=== PATIENT | male | born 1955 | race African-American/Black ===

== ENCOUNTER 2021-05-15 16:16 | Emergency (ER) | payer MEDICARE ==
[2021-05-15 17:31] LABS: #Eosinphils 0.1 thou/uL (0.0-0.7); #Lymphocytes 1.8 thou/uL (1.20-3.40); #Monocytes 0.6 thou/uL (0.11-0.59); #Neutrophils 5.8 thou/uL (1.40-6.50); %Basophils 0.4 % (0.0-1.0); %Eosinophils 0.8 % (0.0-10.0); %Lymphocytes 21.4 % (21.0-51.0); %Monocytes 7.2 % (0.0-10.0); %Neutrophils 70.2 % (42.0-75.0); Hemoglobin 15.3 g/dL (14.0-18.0); Mean Corpuscular HGB CONC 33.2 g/dL (32.0-36.0); Mean Corpuscular Hemoglobin 33.4 pg (27.0-31.0); Mean Platelet Volume 8.2 fL (7.4-10.4); Platelet Count 209 thou/uL (130-400); RBC Distribution Width 11.2 % (11.5-14.5); White Blood Cell (WBC) Count 8.3 thou/uL (4.8-10.8)
[2021-05-15 18:06] LABS: ALT (SGPT) Less than 7 U/L (8-55); AST (SGOT) 19 U/L (5-34); Albumin 3.8 g/dL (3.4-4.8); Alkaline Phosphatase 55 U/L (40-110); Anion Gap 15 mmol/L (10-20); BUN (Urea Nitrogen) 16 mg/dL (8.4-25.7); Bilirubin, Total 1.3 mg/dL (0.2-1.2); Calc. Creatinine Clearance 0 mL/min (70-130); Calcium 9.3 mg/dL (7.8-10.44); Carbon Dioxide 21 mmol/L (23-31); Chloride 108 mmol/L (98-107); Globulin 3.3 g/dL (2.4-3.5); Glucose 101 mg/dL (80-115); Lipase 6 U/L (8-78); Potassium 4.1 mmol/L (3.5-5.1); Protein, Total 7.1 g/dL (5.8-8.1); Sodium 140 mmol/L (136-145)
[2021-05-15 20:11] LABS: Bacteria/HPF None Seen HPF (None Seen); Bilirubin Negative (Negative); Blood, Urine Negative (Negative); Clarity Clear (Clear); Glucose, Urine (Dipstick) Normal (Negative); Ketone, Urine 10 mg/dL (Negative); Leukocyte Negative Leu/uL (Negative); Nitrite Negative (Negative); Protein, Urine (Dipstick) 30 mg/dL (Neg-Trace); RBC/HPF None Seen HPF (0-3); Specific Gravity, Urine 1.032 (1.002-1.036); Squamous Epithelial 0-3 HPF (0-3); Urobilinogen 3 mg/dL (Less than 2); WBC/HPF 0-3 HPF (0-3); pH, Urine 6.5 (5.0-9.0)
[2021-05-15 20:21] LABS: Sperm/HPF Rare HPF (None Seen)
== END 2021-05-15 21:25 | disposition home or self-care (01) ==
LOC: ERS 16:16
DX: R53.1 Weakness (principal); R79.89 Other specified abnormal findings of blood chemistry; G20 Parkinson's disease; F02.80 Dementia in other diseases classified elsewhere, unspecified severity, without behavioral disturbance, psychotic disturbance, mood disturbance, and anxiety; Z79.899 Other long term (current) drug therapy
CPT/HCPCS: 36415; 71045; 80053; 81003; 81015; 83690; 84484; 85025; 93005

== ENCOUNTER 2022-01-18 13:18 | Inpatient (IN) | payer MEDICARE, SELFPAY ==
[2022-01-18] MEDS ORDERED: Iopamidol-370 76% 500 ML 1 ML ONE (13:27)
[2022-01-18 14:00] LABS: #Lymphocytes 0.4 thou/uL (1.20-3.40); #Monocytes 0.5 thou/uL (0.11-0.59); #Neutrophils 3.3 thou/uL (1.40-6.50); %Basophils 0.1 % (0.0-1.0); %Eosinophils 0.1 % (0.0-10.0); %Lymphocytes 10.5 % (21.0-51.0); %Monocytes 12.1 % (0.0-10.0); %Neutrophils 77.1 % (42.0-75.0); Hemoglobin 16.3 g/dL (14.0-18.0); Mean Corpuscular HGB CONC 32.6 g/dL (32.0-36.0); Mean Corpuscular Hemoglobin 33.7 pg (27.0-31.0); Mean Platelet Volume 7.8 fL (7.4-10.4); Platelet Count 153 thou/uL (130-400); RBC Distribution Width 11.5 % (11.5-14.5); Red Blood Cell (RBC) Count 4.85 mill/uL (4.70-6.10); White Blood Cell (WBC) Count 4.2 thou/uL (4.8-10.8)
[2022-01-18 14:15] LABS: Bacteria/HPF None Seen HPF (None Seen); Bilirubin Negative (Negative); Blood, Urine 2+ (Negative); Clarity Clear (Clear); Glucose, Urine (Dipstick) Normal (Negative); Ketone, Urine 40 mg/dL (Negative); Leukocyte Negative Leu/uL (Negative); Nitrite Negative (Negative); Protein, Urine (Dipstick) 30 mg/dL (Neg-Trace); RBC/HPF 0-3 HPF (0-3); Specific Gravity, Urine 1.031 (1.002-1.036); Squamous Epithelial 0-3 HPF (0-3); Urobilinogen Normal mg/dL (Less than 2); WBC/HPF 0-3 HPF (0-3)
[2022-01-18 14:22] LABS: ALT (SGPT) 19 U/L (8-55); AST (SGOT) 32 U/L (5-34); Albumin 4.2 g/dL (3.4-4.8); Alkaline Phosphatase 44 U/L (40-110); Anion Gap 14 mmol/L (10-20); BUN (Urea Nitrogen) 19 mg/dL (8.4-25.7); Bilirubin, Total 2.3 mg/dL (0.2-1.2); CK (CPK) 1208 U/L (30-200); Calc. Creatinine Clearance 0 mL/min (70-130); Calcium 9.8 mg/dL (7.8-10.44); Carbon Dioxide 24 mmol/L (23-31); Chloride 106 mmol/L (98-107); Globulin 3.6 g/dL (2.4-3.5); Glucose 101 mg/dL (80-115); Protein, Total 7.8 g/dL (5.8-8.1); Sodium 140 mmol/L (136-145)
[2022-01-18] MEDS ORDERED: hydrALAZINE 20 MG/ML VIAL SLOW IVP PRN (22:05)
[2022-01-19 05:40] VITALS: BMI 20.2
[2022-01-19] MEDS ORDERED: Aspirin Chewable 81 MG TAB ONE (09:37)
[2022-01-19] MEDS ORDERED: Clopidogrel Bisulfate 75 MG TAB ONE (09:37)
[2022-01-19] MEDS ORDERED: Enoxaparin Sodium 40 MG/0.4 ML SYRINGE ONE (09:37)
[2022-01-19] MEDS: Enoxaparin Sodium 40 MG/0.4 ML SYRINGE SC SCH (09:38)
[2022-01-19] MEDS: Clopidogrel Bisulfate 75 MG TAB PO SCH (09:38)
[2022-01-19] MEDS: Aspirin 81 mg Enteric Coated Tablet PO SCH (09:38)
[2022-01-19] MEDS ORDERED: Acetaminophen 325 MG TAB PO PRN (10:30)
[2022-01-19 10:37] LABS: #Lymphocytes 1.8 thou/uL (1.20-3.40); #Monocytes 0.6 thou/uL (0.11-0.59); #Neutrophils 2.6 thou/uL (1.40-6.50); %Basophils 0.6 % (0.0-1.0); %Eosinophils 0.1 % (0.0-10.0); %Lymphocytes 35.8 % (21.0-51.0); %Monocytes 11.1 % (0.0-10.0); %Neutrophils 52.4 % (42.0-75.0); Hemoglobin 16.2 g/dL (14.0-18.0); Mean Corpuscular Hemoglobin 33.5 pg (27.0-31.0); Mean Platelet Volume 7.9 fL (7.4-10.4); Platelet Count 137 thou/uL (130-400); RBC Distribution Width 11.6 % (11.5-14.5); Red Blood Cell (RBC) Count 4.84 mill/uL (4.70-6.10); White Blood Cell (WBC) Count 4.9 thou/uL (4.8-10.8)
[2022-01-19 11:15] LABS: Anion Gap 16 mmol/L (10-20); BUN (Urea Nitrogen) 16 mg/dL (8.4-25.7); Calc. Creatinine Clearance 65 mL/min (70-130); Calcium 8.9 mg/dL (7.8-10.44); Carbon Dioxide 21 mmol/L (23-31); Chloride 105 mmol/L (98-107); Cholesterol 183 mg/dl (< 200 Desired); Glucose 88 mg/dL (80-115); HDL Cholesterol 61 mg/dL (>60 Neg Risk); LDL Cholesterol, Calculated 107 mg/dL; Potassium 3.9 mmol/L (3.5-5.1); Sodium 138 mmol/L (136-145); Triglycerides 73 mg/dL (Less than 150)
[2022-01-19] MEDS: Sodium Chloride 0.9% 1,000 ML IV SCH ×2 (11:46→20:36)
[2022-01-19] MEDS: Carbidopa/Levodopa 25-100 mg Tablet PO SCH (20:37)
[2022-01-19] MEDS: Atorvastatin Calcium 40 MG TAB PO SCH (20:37)
[2022-01-20] MEDS: Carbidopa/Levodopa 25-100 mg Tablet PO SCH ×4 (09:32→21:04)
[2022-01-20] MEDS: Aspirin 81 mg Enteric Coated Tablet PO SCH (09:32)
[2022-01-20] MEDS: Enoxaparin Sodium 40 MG/0.4 ML SYRINGE SC SCH (09:34)
[2022-01-20] MEDS: Clopidogrel Bisulfate 75 MG TAB PO SCH (09:34)
[2022-01-20] MEDS: Atorvastatin Calcium 40 MG TAB PO SCH (21:04)
[2022-01-21 05:41] LABS: Anion Gap 14 mmol/L (10-20); BUN (Urea Nitrogen) 11 mg/dL (8.4-25.7); CK (CPK) 1393 U/L (30-200); Calc. Creatinine Clearance 73 mL/min (70-130); Calcium 8.5 mg/dL (7.8-10.44); Carbon Dioxide 23 mmol/L (23-31); Chloride 105 mmol/L (98-107); Glucose 89 mg/dL (80-115); Potassium 3.3 mmol/L (3.5-5.1); Sodium 139 mmol/L (136-145)
[2022-01-21] MEDS: Carbidopa/Levodopa 25-100 mg Tablet PO SCH ×4 (09:13→20:22)
[2022-01-21] MEDS: Clopidogrel Bisulfate 75 MG TAB PO SCH (09:13)
[2022-01-21] MEDS: Aspirin 81 mg Enteric Coated Tablet PO SCH (09:13)
[2022-01-21] MEDS: Enoxaparin Sodium 40 MG/0.4 ML SYRINGE SC SCH (09:13)
[2022-01-21] MEDS ORDERED: Potassium Chloride 20 MEQ TAB PO SCH (14:15)
[2022-01-21] MEDS: Sodium Chloride 0.9% 1,000 ML IV SCH (20:22)
[2022-01-21] MEDS: Atorvastatin Calcium 40 MG TAB PO SCH (20:22)
[2022-01-22 06:00] LABS: Anion Gap 14 mmol/L (10-20); BUN (Urea Nitrogen) 10 mg/dL (8.4-25.7); CK (CPK) 1136 U/L (30-200); Calc. Creatinine Clearance 73 mL/min (70-130); Calcium 8.8 mg/dL (7.8-10.44); Carbon Dioxide 25 mmol/L (23-31); Chloride 106 mmol/L (98-107); Estimated GFR 96; Glucose 79 mg/dL (80-115); Magnesium 1.8 mg/dL (1.6-2.6); Potassium 3.7 mmol/L (3.5-5.1); Sodium 141 mmol/L (136-145)
[2022-01-22 06:24] LABS: Band 8 % (5-11); Hemoglobin 16.9 g/dL (14.0-18.0); Lymphocytes 46 % (21-51); MDiff Complete? YES; Macrocytosis SLIGHT = 6-15 cells (100X) (0-5/hpf); Mean Corpuscular HGB CONC 32.2 g/dL (32.0-36.0); Mean Corpuscular Hemoglobin 33.3 pg (27.0-31.0); Mean Platelet Volume 8.2 fL (7.4-10.4); Monocytes 12 % (0-10); Neutrophil 30 % (42-75); Platelet Count 132 thou/uL (130-400); Platelet Morphology Comment Appears Adequate; RBC Distribution Width 11.5 % (11.5-14.5); Reactive Lymphocytes 4 % (0-10); Red Blood Cell (RBC) Count 5.08 mill/uL (4.70-6.10); White Blood Cell (WBC) Count 3.4 thou/uL (4.8-10.8)
[2022-01-22] MEDS: Sodium Chloride 0.9% 1,000 ML IV SCH ×2 (09:15→23:17)
[2022-01-22] MEDS: Carbidopa/Levodopa 25-100 mg Tablet PO SCH ×4 (09:22→19:15)
[2022-01-22] MEDS: Clopidogrel Bisulfate 75 MG TAB PO SCH (09:22)
[2022-01-22] MEDS: Enoxaparin Sodium 40 MG/0.4 ML SYRINGE SC SCH (09:22)
[2022-01-22] MEDS: Aspirin 81 mg Enteric Coated Tablet PO SCH (09:22)
[2022-01-22] MEDS: Atorvastatin Calcium 40 MG TAB PO SCH (21:21)
[2022-01-23] MEDS: Carbidopa/Levodopa 25-100 mg Tablet PO SCH ×4 (06:18→18:30)
[2022-01-23] MEDS: Enoxaparin Sodium 40 MG/0.4 ML SYRINGE SC SCH (10:01)
[2022-01-23] MEDS: Clopidogrel Bisulfate 75 MG TAB PO SCH (10:01)
[2022-01-23] MEDS: Aspirin 81 mg Enteric Coated Tablet PO SCH (10:02)
[2022-01-23] MEDS: Sodium Chloride 0.9% 1,000 ML IV SCH (10:02)
[2022-01-23] MEDS: Atorvastatin Calcium 40 MG TAB PO SCH (19:34)
[2022-01-24] MEDS: Sodium Chloride 0.9% 1,000 ML IV SCH ×2 (01:35→11:44)
[2022-01-24] MEDS: Carbidopa/Levodopa 25-100 mg Tablet PO SCH ×3 (06:08→14:51)
[2022-01-24] MEDS: Aspirin 81 mg Enteric Coated Tablet PO SCH (11:08)
[2022-01-24] MEDS: Enoxaparin Sodium 40 MG/0.4 ML SYRINGE SC SCH (11:08)
[2022-01-24] MEDS: Clopidogrel Bisulfate 75 MG TAB PO SCH (11:09)
[2022-01-24 11:58] VITALS: BP 157/74; TEMP 98
== END 2022-01-24 16:05 | DRG 69 ==
LOC: ERS 13:18 → ERHOLD 16:50 → NEURO 01-19 10:02
PROVIDERS: ADMIT Family Medicine; ATTEND Internal Medicine
PROC: 8E0ZXY6 Isolation (ICD-10-PCS; principal; 2022-01-19)
DX: G45.9 Transient cerebral ischemic attack, unspecified (principal); U07.1 COVID-19; G20 Parkinson's disease; F02.80 Dementia in other diseases classified elsewhere, unspecified severity, without behavioral disturbance, psychotic disturbance, mood disturbance, and anxiety; T79.6XXA Traumatic ischemia of muscle, initial encounter; W19.XXXA Unspecified fall, initial encounter; N18.2 Chronic kidney disease, stage 2 (mild); Z91.81 History of falling; Z86.73 Personal history of transient ischemic attack (TIA), and cerebral infarction without residual deficits; Z88.0 Allergy status to penicillin; Y92.009 Unspecified place in unspecified non-institutional (private) residence as the place of occurrence of the external cause
CPT/HCPCS: 36415; 36416; 70450; 70496; 70498; 70551; 74230; 80048; 80053; 80061; 81003; 81015; 82550; 83735; 85025; 93005; 93306; J1650; J7050; Q9967; U0003; U0005

== ENCOUNTER 2023-02-17 11:35 | Inpatient (IN) | payer MEDICARE, OTHER, SELFPAY ==
[~2023-02-17 11:35] MED LIST: Iopamidol-370 76% 500 ML MDV (1 ML CHARGE) ONE
[2023-02-17 13:20] LABS: #Monocytes 0.4 thou/uL (0.11-0.59); #Neutrophils 5.4 thou/uL (1.40-6.50); %Basophils 0.3 % (0.0-1.0); %Lymphocytes 12.7 % (21.0-51.0); %Monocytes 6.4 % (0.0-10.0); %Neutrophils 80.5 % (42.0-75.0); Hemoglobin 14.7 g/dL (14.0-18.0); Mean Corpuscular HGB CONC 34.3 g/dL (32.0-36.0); Mean Corpuscular Hemoglobin 32.9 pg (27.0-31.0); Mean Corpuscular Volume 95.7 fl (78.0-98.0); Mean Platelet Volume 10.9 fL (7.4-10.4); Platelet Count 150 10x3/uL (130-400); RBC Distribution Width 11.6 % (11.5-14.5); Red Blood Cell (RBC) Count 4.47 mill/uL (4.70-6.10); White Blood Cell (WBC) Count 6.7 10x3/uL (4.8-10.8)
[2023-02-17 13:45] LABS: ALT (SGPT) 12 U/L (8-55); AST (SGOT) 30 U/L (5-34); Albumin 3.5 g/dL (3.4-4.8); Alkaline Phosphatase 40 U/L (40-110); Anion Gap 16 mmol/L (10-20); BUN (Urea Nitrogen) 19 mg/dL (8.4-25.7); Bilirubin, Total 2.4 mg/dL (0.2-1.2); Calc. Creatinine Clearance 0 mL/min (70-130); Calcium 8.8 mg/dL (7.8-10.44); Carbon Dioxide 18 mmol/L (23-31); Chloride 114 mmol/L (98-107); Estimated GFR 77; Globulin 2.9 g/dL (2.4-3.5); Glucose 113 mg/dL (80-115); Lipase Less than 4 U/L (8-78); Magnesium 1.8 mg/dL (1.6-2.6); Potassium 3.5 mmol/L (3.5-5.1); Protein, Total 6.4 g/dL (5.8-8.1); Sodium 144 mmol/L (136-145)
[2023-02-17 13:55] LABS: Bacteria/HPF None Seen HPF (None Seen); Bilirubin Negative (Negative); Blood, Urine 1+ (Negative); CAUTI Indications for Culture Alt mental st,lethar; Clarity Clear (Clear); Glucose, Urine (Dipstick) Normal (Negative); Ketone, Urine 60 mg/dL (Negative); Leukocyte Negative Leu/uL (Negative); Mucous/LPF Rare LPF (<2+); Nitrite Negative (Negative); Protein, Urine (Dipstick) 30 mg/dL (Neg-Trace); Specific Gravity, Urine 1.029 (1.002-1.036); Squamous Epithelial 0-3 HPF (0-3); Urobilinogen Normal mg/dL (Less than 2); WBC/HPF None Seen HPF (0-3); pH, Urine 5.5 (5.0-9.0)
[2023-02-17 13:56] LABS: Sperm/HPF Rare HPF (None Seen)
[2023-02-17 13:57] LABS: Urine Culture Reflex No No
[2023-02-17] MEDS ORDERED: Sodium Chloride 0.9% 1,000 ML IV SCH (15:45)
[2023-02-17 16:14] LABS: Acetaminophen Less than 10 mcg/mL (10.0-30.0); Alcohol Less than 10.0 mg/dL (Less than 10); Salicylate Less than 8.0 mg/dL (15.0-30.0)
[2023-02-17 16:15] LABS: Amphetamine Not Detected (NotDetected); Barbiturates Screen Not Detected (NotDetected); Benzodiazepine Screen Not Detected (NotDetected); Cocaine Metabolite Screen Not Detected (NotDetected); Methadone Not Detected (NotDetected); Methamphetamine Not Detected (NotDetected); Opiate Screen Not Detected (NotDetected); Oxycodone Screen Not Detected (NotDetected); Phencyclidine (PCP) Not Detected (NotDetected); THC/Cannabinoid Screen Not Detected (NotDetected); Tricyclic Screen Not Detected (NotDetected)
[2023-02-17] MEDS ORDERED: Ondansetron PF 4 MG/2 ML Vial IVP PRN (16:29)
[2023-02-17 18:35] VITALS: BMI 3003.8
[2023-02-18 05:56] LABS: ALT (SGPT) 22 U/L (8-55); AST (SGOT) 64 U/L (5-34); Albumin 3.4 g/dL (3.4-4.8); Alkaline Phosphatase 37 U/L (40-110); Anion Gap 13 mmol/L (10-20); BUN (Urea Nitrogen) 13 mg/dL (8.4-25.7); Bilirubin, Total 2.1 mg/dL (0.2-1.2); Calc. Creatinine Clearance 65 mL/min (70-130); Calcium 8.6 mg/dL (7.8-10.44); Carbon Dioxide 20 mmol/L (23-31); Chloride 111 mmol/L (98-107); Estimated GFR 95; Globulin 3.3 g/dL (2.4-3.5); Glucose 87 mg/dL (80-115); Potassium 4.9 mmol/L (3.5-5.1); Protein, Total 6.7 g/dL (5.8-8.1); Sodium 139 mmol/L (136-145)
[2023-02-18 06:04] LABS: CKMB 32.4 ng/mL (0-6.6)
[2023-02-18] MEDS: Carbidopa/Levodopa 25-100 mg Tablet PO SCH ×3 (10:07→20:18)
[2023-02-18] MEDS ORDERED: HYDROcodone/Acetaminophen 5/325 mg Tablet PO PRN (16:31)
[2023-02-18] MEDS: Atorvastatin Calcium 40 MG TAB PO SCH (20:18)
[2023-02-18] MEDS: Acetaminophen 325 MG TAB PO PRN (20:19)
[2023-02-19 09:19] LABS: ALT (SGPT) 13 U/L (8-55); AST (SGOT) 52 U/L (5-34); Albumin 3.3 g/dL (3.4-4.8); Alkaline Phosphatase 39 U/L (40-110); Anion Gap 11 mmol/L (10-20); BUN (Urea Nitrogen) 15 mg/dL (8.4-25.7); Bilirubin, Total 1.7 mg/dL (0.2-1.2); Calc. Creatinine Clearance 63 mL/min (70-130); Carbon Dioxide 19 mmol/L (23-31); Chloride 113 mmol/L (98-107); Estimated GFR 91; Glucose 91 mg/dL (80-115); Potassium 3.4 mmol/L (3.5-5.1); Protein, Total 6.3 g/dL (5.8-8.1); Sodium 140 mmol/L (136-145)
[2023-02-19 09:49] LABS: Troponin I 0.026 ng/mL (< 0.028)
[2023-02-19] MEDS: Clopidogrel Bisulfate 75 MG TAB PO SCH (10:25)
[2023-02-19] MEDS: Carbidopa/Levodopa 25-100 mg Tablet PO SCH ×3 (10:25→20:46)
[2023-02-19] MEDS: Sodium Chloride 0.9% 1,000 ML IV SCH (17:33)
[2023-02-19] MEDS: Atorvastatin Calcium 40 MG TAB PO SCH (20:46)
[2023-02-20] MEDS: Sodium Chloride 0.9% 1,000 ML IV SCH ×2 (05:22→17:05)
[2023-02-20] MEDS: Clopidogrel Bisulfate 75 MG TAB PO SCH (08:49)
[2023-02-20] MEDS: Carbidopa/Levodopa 25-100 mg Tablet PO SCH ×4 (08:49→20:57)
[2023-02-20] MEDS: Acetaminophen 325 MG TAB PO PRN ×2 (09:12→20:57)
[2023-02-20] MEDS: Atorvastatin Calcium 40 MG TAB PO SCH (20:56)
[2023-02-21 05:41] LABS: Hemoglobin 14.9 g/dL (14.0-18.0); Platelet Count 171 10x3/uL (130-400)
[2023-02-21] MEDS: Carbidopa/Levodopa 25-100 mg Tablet PO SCH ×2 (09:41→14:37)
[2023-02-21] MEDS: Clopidogrel Bisulfate 75 MG TAB PO SCH (09:41)
[2023-02-21] MEDS: Sodium Chloride 0.9% 1,000 ML IV SCH ×2 (09:42→14:38)
[2023-02-21 11:17] LABS: #Basophils 0.1 thou/uL (0.0-0.2); #Eosinphils 0.1 thou/uL (0.0-0.7); #Monocytes 0.5 thou/uL (0.11-0.59); #Neutrophils 2.5 thou/uL (1.40-6.50); %Basophils 1.2 % (0.0-1.0); %Eosinophils 1.8 % (0.0-10.0); %Lymphocytes 37.3 % (21.0-51.0); %Monocytes 9.4 % (0.0-10.0); %Neutrophils 50.1 % (42.0-75.0); Hemoglobin 14.1 g/dL (14.0-18.0); Mean Corpuscular HGB CONC 32.3 g/dL (32.0-36.0); Mean Corpuscular Hemoglobin 32.6 pg (27.0-31.0); Mean Corpuscular Volume 101.2 fl (78.0-98.0); Mean Platelet Volume 10.6 fL (7.4-10.4); Platelet Count 140 10x3/uL (130-400); RBC Distribution Width 11.7 % (11.5-14.5); Red Blood Cell (RBC) Count 4.32 mill/uL (4.70-6.10)
[2023-02-21 11:49] LABS: Anion Gap 15 mmol/L (10-20); Calcium 8.4 mg/dL (7.8-10.44); Carbon Dioxide 21 mmol/L (23-31); Chloride 108 mmol/L (98-107); Potassium 3.5 mmol/L (3.5-5.1); Sodium 140 mmol/L (136-145)
[2023-02-21 12:51] LABS: Glucose 116 mg/dL (80-115)
[2023-02-21 13:11] LABS: BUN (Urea Nitrogen) 12 mg/dL (8.4-25.7); Calc. Creatinine Clearance 68 mL/min (70-130); Estimated GFR 96
[2023-02-21 16:25] VITALS: BP 144/87; TEMP 97.6
== END 2023-02-21 17:40 | DRG 565 ==
LOC: ERS 11:35 → ERHOLD 15:34 → 2NO 18:10 → SURG B 02-18 18:12
PROVIDERS: ADMIT Internal Medicine; ATTEND Internal Medicine
DX: T79.6XXA Traumatic ischemia of muscle, initial encounter (principal); S22.070A Wedge compression fracture of T9-T10 vertebra, initial encounter for closed fracture; R53.1 Weakness; G20 Parkinson's disease; Z66 Do not resuscitate; R29.6 Repeated falls; E86.0 Dehydration; Z60.2 Problems related to living alone; F02.80 Dementia in other diseases classified elsewhere, unspecified severity, without behavioral disturbance, psychotic disturbance, mood disturbance, and anxiety; E66.9 Obesity, unspecified; W18.30XA Fall on same level, unspecified, initial encounter; Z79.899 Other long term (current) drug therapy; Z88.0 Allergy status to penicillin; Z86.73 Personal history of transient ischemic attack (TIA), and cerebral infarction without residual deficits; Z79.82 Long term (current) use of aspirin; Z79.02 Long term (current) use of antithrombotics/antiplatelets; Z82.49 Family history of ischemic heart disease and other diseases of the circulatory system; Y92.009 Unspecified place in unspecified non-institutional (private) residence as the place of occurrence of the external cause
CPT/HCPCS: 36415; 36416; 70450; 71260; 72125; 74177; 80053; 80306; 80307; 81001; 82550; 82553; 82565; 83605; 83690; 83735; 83880; 84484; 85014; 85018; 85025; 85049; 87040; 87086; 93005; 96360; J1650; J7050; Q9967

== ENCOUNTER 2023-03-17 11:16 | Inpatient (IN) | payer MEDICARE, OTHER ==
[2023-03-17 12:30] LABS: #Monocytes 0.8 thou/uL (0.11-0.59); #Neutrophils 12.7 thou/uL (1.40-6.50); %Basophils 0.2 % (0.0-1.0); %Lymphocytes 8.6 % (21.0-51.0); %Monocytes 5.1 % (0.0-10.0); %Neutrophils 85.7 % (42.0-75.0); Hematocrit 48.7 % (42.0-52.0); Hemoglobin 16.7 g/dL (14.0-18.0); Mean Corpuscular HGB CONC 34.3 g/dL (32.0-36.0); Mean Corpuscular Volume 96.2 fl (78.0-98.0); Mean Platelet Volume 10.8 fL (7.4-10.4); Platelet Count 251 10x3/uL (130-400); RBC Distribution Width 11.9 % (11.5-14.5); Red Blood Cell (RBC) Count 5.06 mill/uL (4.70-6.10); White Blood Cell (WBC) Count 14.8 10x3/uL (4.8-10.8)
[2023-03-17 12:59] LABS: Amphetamine Not Detected (NotDetected); Barbiturates Screen Not Detected (NotDetected); Benzodiazepine Screen Not Detected (NotDetected); Cocaine Metabolite Screen Not Detected (NotDetected); Methadone Not Detected (NotDetected); Methamphetamine Not Detected (NotDetected); Opiate Screen Not Detected (NotDetected); Oxycodone Screen Not Detected (NotDetected); Phencyclidine (PCP) Not Detected (NotDetected); THC/Cannabinoid Screen Not Detected (NotDetected); Tricyclic Screen Not Detected (NotDetected)
[2023-03-17 13:02] LABS: Bilirubin Negative (Negative); Blood, Urine 3+ (Negative); CAUTI Indications for Culture Alt mental st,lethar; Clarity Turbid (Clear); Glucose, Urine (Dipstick) Normal (Negative); Ketone, Urine Trace mg/dL (Negative); Leukocyte 500 Leu/uL (Negative); Nitrite Negative (Negative); Protein, Urine (Dipstick) 50 mg/dL (Neg-Trace); Specific Gravity, Urine 1.026 (1.002-1.036); Squamous Epithelial 0-3 HPF (0-3); Urobilinogen Normal mg/dL (Less than 2); WBC/HPF Greater than 50 HPF (0-3); pH, Urine 5.5 (5.0-9.0)
[2023-03-17 13:05] LABS: Troponin I Less than 0.010 ng/mL (< 0.028)
[2023-03-17 13:08] LABS: Sperm/HPF Rare HPF (None Seen)
[2023-03-17 13:09] LABS: Bacteria/HPF 3+ HPF (None Seen)
[2023-03-17 13:10] LABS: Urine Culture Reflex Yes Yes
[2023-03-17] MEDS ORDERED: Acetaminophen 500 MG TAB ONE (13:48)
[2023-03-17] MEDS ORDERED: cefTRIAXone (ROCEPHIN) 1 GM VIAL ONE (13:48)
[2023-03-17 13:52] LABS: Acetaminophen Less than 10 mcg/mL (10.0-30.0)
[2023-03-17 13:53] LABS: Alcohol Less than 10.0 mg/dL (Less than 10); Salicylate Less than 8.0 mg/dL (15.0-30.0)
[2023-03-17 13:57] LABS: Anion Gap 15 mmol/L (10-20); BUN (Urea Nitrogen) 15 mg/dL (8.4-25.7); Bilirubin, Total 2.6 mg/dL (0.2-1.2); Calc. Creatinine Clearance 0 mL/min (70-130); Calcium 9.5 mg/dL (7.6-10.4); Carbon Dioxide 22 mmol/L (23-31); Chloride 104 mmol/L (98-107); Estimated GFR 86; Glucose 106 mg/dL (80-115); Potassium 4.4 mmol/L (3.5-5.1); Sodium 137 mmol/L (136-145)
[2023-03-17 13:58] LABS: ALT (SGPT) 18 U/L (8-55); AST (SGOT) 25 U/L (5-34); Albumin 3.6 g/dL (3.4-4.8); Alkaline Phosphatase 55 U/L (40-110); CK (CPK) 898 U/L (30-200); Globulin 3.1 g/dL (2.4-3.5); Protein, Total 6.7 g/dL (5.8-8.1)
[2023-03-17] MEDS ORDERED: tiZANidine HCl 4 MG TAB PO PRN (14:27)
[2023-03-17] MEDS ORDERED: Acetaminophen 650 MG Suppository PR PRN (14:28)
[2023-03-17] MEDS ORDERED: Bisacodyl 5 MG TAB PO PRN (14:28)
[2023-03-17] MEDS ORDERED: Acetaminophen 325 MG TAB PO PRN (14:28)
[2023-03-17] MEDS ORDERED: Senokot S 8.6-50 MG TAB PO PRN (14:28)
[2023-03-17] MEDS ORDERED: Bisacodyl 10 MG SUPP PR PRN (14:28)
[2023-03-17] MEDS ORDERED: Ondansetron PF 4 MG/2 ML Vial IVP PRN (14:32)
[2023-03-17] MEDS ORDERED: diphenhydrAMINE 50 MG/ML VIAL IVP PRN (14:32)
[2023-03-17] MEDS ORDERED: Moisturizing Cream (Eucerin) 113 GM JAR TOP PRN (14:32)
[2023-03-17] MEDS ORDERED: Artificial Tear Sol 15 ML BOT EA EYE PRN (14:32)
[2023-03-17] MEDS ORDERED: Benzocaine/Menthol 1 LOZ LOZ PO PRN (14:32)
[2023-03-17] MEDS ORDERED: Communication Order-Pharmacy FS ONE (14:34)
[2023-03-17] MEDS ORDERED: Electrolyte Replacement Protocol 1 EACH FS SCH (15:00)
[2023-03-17 15:45] VITALS: BMI 23.0
[2023-03-17 15:55] LABS: #Monocytes 0.6 thou/uL (0.11-0.59); #Neutrophils 11.4 thou/uL (1.40-6.50); %Basophils 0.2 % (0.0-1.0); %Lymphocytes 9.4 % (21.0-51.0); %Monocytes 4.7 % (0.0-10.0); %Neutrophils 85.2 % (42.0-75.0); Hematocrit 44.7 % (42.0-52.0); Hemoglobin 15.2 g/dL (14.0-18.0); Mean Corpuscular Hemoglobin 32.9 pg (27.0-31.0); Mean Corpuscular Volume 96.8 fl (78.0-98.0); Mean Platelet Volume 10.1 fL (7.4-10.4); Platelet Count 192 10x3/uL (130-400); RBC Distribution Width 11.9 % (11.5-14.5); Red Blood Cell (RBC) Count 4.62 mill/uL (4.70-6.10); White Blood Cell (WBC) Count 13.4 10x3/uL (4.8-10.8)
[2023-03-17] MEDS ORDERED: Electrolyte Replacement Protocol FS PRN (16:00)
[2023-03-17 16:16] LABS: Anion Gap 8 mmol/L (10-20); BUN (Urea Nitrogen) 13 mg/dL (8.4-25.7); Calc. Creatinine Clearance 65 mL/min (70-130); Carbon Dioxide 20 mmol/L (23-31); Chloride 109 mmol/L (98-107); Estimated GFR 89; Glucose 100 mg/dL (80-115); Potassium 3.6 mmol/L (3.5-5.1); Sodium 133 mmol/L (136-145)
[2023-03-17 16:17] LABS: ALT (SGPT) 18 U/L (8-55); AST (SGOT) 26 U/L (5-34); Albumin 3.3 g/dL (3.4-4.8); Alkaline Phosphatase 54 U/L (40-110); Bilirubin, Total 1.9 mg/dL (0.2-1.2); Globulin 3.2 g/dL (2.4-3.5); Magnesium 1.5 mg/dL (1.6-2.6); Phosphorus 2.3 mg/dL (2.3-4.7); Protein, Total 6.5 g/dL (5.8-8.1)
[2023-03-17] MEDS ORDERED: cefTRIAXone\\ROCEPHIN 1 GM in Sodium Chloride 0.9% 100 ML IVPB SCH (16:30)
[2023-03-17] MEDS: Carbidopa/Levodopa 25-100 mg Tablet PO SCH ×2 (16:50→22:01)
[2023-03-17] MEDS: Dextrose 5 %-0.45 % NaCl 1,000 ML IV SCH (16:50)
[2023-03-17] MEDS: Famotidine/PF 20 mg/2ml Vial SLOW IVP SCH (22:01)
[2023-03-17] MEDS: Atorvastatin Calcium 40 MG TAB PO SCH (22:01)
[2023-03-17] MEDS ORDERED: Magnesium 2 GM/50 ML(in water) 2 GM in Premix Bag 1 BAG IVPB SCH (23:15)
[2023-03-18] MEDS: Dextrose 5 %-0.45 % NaCl 1,000 ML IV SCH (05:08)
[2023-03-18 07:39] LABS: #Monocytes 0.9 thou/uL (0.11-0.59); #Neutrophils 9.3 thou/uL (1.40-6.50); %Basophils 0.3 % (0.0-1.0); %Eosinophils 0.1 % (0.0-10.0); %Lymphocytes 14.3 % (21.0-51.0); %Monocytes 7.1 % (0.0-10.0); %Neutrophils 77.9 % (42.0-75.0); Hematocrit 40.3 % (42.0-52.0); Hemoglobin 13.3 g/dL (14.0-18.0); Mean Corpuscular Hemoglobin 32.6 pg (27.0-31.0); Mean Corpuscular Volume 98.8 fl (78.0-98.0); Mean Platelet Volume 10.1 fL (7.4-10.4); Platelet Count 199 10x3/uL (130-400); Red Blood Cell (RBC) Count 4.08 mill/uL (4.70-6.10); White Blood Cell (WBC) Count 11.9 10x3/uL (4.8-10.8)
[2023-03-18 08:05] LABS: Anion Gap 10 mmol/L (10-20); BUN (Urea Nitrogen) 8 mg/dL (8.4-25.7); Calc. Creatinine Clearance 56 mL/min (70-130); Calcium 8.7 mg/dL (7.8-10.44); Carbon Dioxide 24 mmol/L (23-31); Chloride 108 mmol/L (98-107); Estimated GFR 75; Glucose 111 mg/dL (80-115); Potassium 3.7 mmol/L (3.5-5.1); Sodium 138 mmol/L (136-145)
[2023-03-18] MEDS ORDERED: Magnesium 2 GM/50 ML(in water) 2 GM in Premix Bag 1 BAG IVPB SCH (08:30)
[2023-03-18] MEDS: Carbidopa/Levodopa 25-100 mg Tablet PO SCH ×3 (09:00→20:39)
[2023-03-18] MEDS: Aspirin 300 MG Suppository PR SCH (09:00)
[2023-03-18] MEDS: Famotidine/PF 20 mg/2ml Vial SLOW IVP SCH (09:00)
[2023-03-18] MEDS: Aspirin 81 mg Enteric Coated Tablet PO SCH (09:00)
[2023-03-18] MEDS: cefTRIAXone\\ROCEPHIN 2 GM in Sodium Chloride 0.9% 100 ML IVPB SCH (13:00)
[2023-03-18] MEDS: Famotidine 20 MG TAB PO SCH (20:39)
[2023-03-18] MEDS: Atorvastatin Calcium 40 MG TAB PO SCH (20:40)
[2023-03-19 06:17] LABS: #Eosinphils 0.1 thou/uL (0.0-0.7); #Monocytes 0.8 thou/uL (0.11-0.59); #Neutrophils 5.5 thou/uL (1.40-6.50); %Basophils 0.4 % (0.0-1.0); %Eosinophils 0.6 % (0.0-10.0); %Lymphocytes 18.8 % (21.0-51.0); %Monocytes 10.1 % (0.0-10.0); Hematocrit 41.7 % (42.0-52.0); Hemoglobin 13.8 g/dL (14.0-18.0); Mean Corpuscular HGB CONC 33.1 g/dL (32.0-36.0); Mean Corpuscular Hemoglobin 32.7 pg (27.0-31.0); Mean Corpuscular Volume 98.8 fl (78.0-98.0); Mean Platelet Volume 10.2 fL (7.4-10.4); Platelet Count 207 10x3/uL (130-400); RBC Distribution Width 11.9 % (11.5-14.5); Red Blood Cell (RBC) Count 4.22 mill/uL (4.70-6.10); White Blood Cell (WBC) Count 7.8 10x3/uL (4.8-10.8)
[2023-03-19] MEDS: Aspirin 300 MG Suppository PR SCH (08:30)
[2023-03-19] MEDS: Carbidopa/Levodopa 25-100 mg Tablet PO SCH ×3 (08:30→20:27)
[2023-03-19] MEDS: Famotidine 20 MG TAB PO SCH ×2 (08:30→20:27)
[2023-03-19] MEDS: Aspirin 81 mg Enteric Coated Tablet PO SCH (08:30)
[2023-03-19] MEDS: cefTRIAXone\\ROCEPHIN 2 GM in Sodium Chloride 0.9% 100 ML IVPB SCH (12:29)
[2023-03-19] MEDS: Atorvastatin Calcium 40 MG TAB PO SCH (20:27)
[2023-03-20] MEDS: Aspirin 300 MG Suppository PR SCH (08:14)
[2023-03-20] MEDS: Aspirin 81 mg Enteric Coated Tablet PO SCH (08:15)
[2023-03-20] MEDS: Carbidopa/Levodopa 25-100 mg Tablet PO SCH ×3 (08:15→21:57)
[2023-03-20] MEDS: Famotidine 20 MG TAB PO SCH ×2 (08:15→21:57)
[2023-03-20] MEDS: cefTRIAXone\\ROCEPHIN 2 GM in Sodium Chloride 0.9% 100 ML IVPB SCH (12:33)
[2023-03-20] MEDS: Atorvastatin Calcium 40 MG TAB PO SCH (21:57)
[2023-03-21] MEDS: Aspirin 300 MG Suppository PR SCH (08:30)
[2023-03-21] MEDS: Famotidine 20 MG TAB PO SCH ×2 (08:30→20:58)
[2023-03-21] MEDS: Aspirin 81 mg Enteric Coated Tablet PO SCH (08:30)
[2023-03-21] MEDS: Carbidopa/Levodopa 25-100 mg Tablet PO SCH ×3 (08:30→20:58)
[2023-03-21 08:35] LABS: #Eosinphils 0.1 thou/uL (0.0-0.7); #Monocytes 0.6 thou/uL (0.11-0.59); #Neutrophils 3.5 thou/uL (1.40-6.50); %Basophils 0.5 % (0.0-1.0); %Lymphocytes 30.2 % (21.0-51.0); %Monocytes 9.6 % (0.0-10.0); %Neutrophils 58.5 % (42.0-75.0); Hematocrit 44.7 % (42.0-52.0); Hemoglobin 14.9 g/dL (14.0-18.0); Mean Corpuscular HGB CONC 33.3 g/dL (32.0-36.0); Mean Corpuscular Hemoglobin 32.5 pg (27.0-31.0); Mean Corpuscular Volume 97.4 fl (78.0-98.0); Mean Platelet Volume 10.2 fL (7.4-10.4); Platelet Count 278 10x3/uL (130-400); RBC Distribution Width 11.8 % (11.5-14.5); Red Blood Cell (RBC) Count 4.59 mill/uL (4.70-6.10)
[2023-03-21 09:01] LABS: Anion Gap 12 mmol/L (10-20); BUN (Urea Nitrogen) 12 mg/dL (8.4-25.7); Calc. Creatinine Clearance 65 mL/min (70-130); Calcium 9.5 mg/dL (7.8-10.44); Carbon Dioxide 25 mmol/L (23-31); Chloride 105 mmol/L (98-107); Estimated GFR 89; Glucose 88 mg/dL (80-115); Potassium 3.6 mmol/L (3.5-5.1); Sodium 138 mmol/L (136-145)
[2023-03-21] MEDS: cefTRIAXone\\ROCEPHIN 2 GM in Sodium Chloride 0.9% 100 ML IVPB SCH (12:37)
[2023-03-21] MEDS: Atorvastatin Calcium 40 MG TAB PO SCH (20:58)
[2023-03-22] MEDS: Aspirin 300 MG Suppository PR SCH (08:24)
[2023-03-22] MEDS: Carbidopa/Levodopa 25-100 mg Tablet PO SCH ×3 (08:25→20:32)
[2023-03-22] MEDS: Aspirin 81 mg Enteric Coated Tablet PO SCH (08:25)
[2023-03-22] MEDS: Famotidine 20 MG TAB PO SCH ×2 (08:25→20:33)
[2023-03-22] MEDS: cefTRIAXone\\ROCEPHIN 2 GM in Sodium Chloride 0.9% 100 ML IVPB SCH (14:19)
[2023-03-22] MEDS: Atorvastatin Calcium 40 MG TAB PO SCH (20:32)
[2023-03-23] MEDS: Famotidine 20 MG TAB PO SCH ×2 (08:19→20:53)
[2023-03-23] MEDS: Aspirin 300 MG Suppository PR SCH (08:20)
[2023-03-23] MEDS: Aspirin 81 mg Enteric Coated Tablet PO SCH (08:20)
[2023-03-23] MEDS: Carbidopa/Levodopa 25-100 mg Tablet PO SCH ×3 (08:20→20:53)
[2023-03-23] MEDS: cefTRIAXone\\ROCEPHIN 2 GM in Sodium Chloride 0.9% 100 ML IVPB SCH (14:49)
[2023-03-23] MEDS: Atorvastatin Calcium 40 MG TAB PO SCH (20:53)
[2023-03-24] MEDS: Carbidopa/Levodopa 25-100 mg Tablet PO SCH ×2 (08:57→13:31)
[2023-03-24] MEDS: Famotidine 20 MG TAB PO SCH (08:57)
[2023-03-24] MEDS: Aspirin 81 mg Enteric Coated Tablet PO SCH (08:58)
[2023-03-24] MEDS: Aspirin 300 MG Suppository PR SCH (08:58)
[2023-03-24 12:12] VITALS: BP 137/84; TEMP 97.6
== END 2023-03-24 16:40 | DRG 689 ==
LOC: ERS 11:16 → T4-A 14:28 → OBSVTOIN 03-18 12:26
PROVIDERS: ADMIT Family Medicine; ATTEND Internal Medicine
DX: N39.0 Urinary tract infection, site not specified (principal); G93.41 Metabolic encephalopathy; Z66 Do not resuscitate; G20 Parkinson's disease; R29.6 Repeated falls; R13.10 Dysphagia, unspecified; F03.90 Unspecified dementia, unspecified severity, without behavioral disturbance, psychotic disturbance, mood disturbance, and anxiety; E78.5 Hyperlipidemia, unspecified; N18.2 Chronic kidney disease, stage 2 (mild); Z51.5 Encounter for palliative care; M25.519 Pain in unspecified shoulder; Z86.73 Personal history of transient ischemic attack (TIA), and cerebral infarction without residual deficits; Z88.0 Allergy status to penicillin; Z98.890 Other specified postprocedural states; Z82.49 Family history of ischemic heart disease and other diseases of the circulatory system; Z79.899 Other long term (current) drug therapy; Z79.82 Long term (current) use of aspirin; Z79.02 Long term (current) use of antithrombotics/antiplatelets
CPT/HCPCS: 36415; 70450; 71045; 72100; 72125; 74230; 80048; 80053; 80306; 80307; 81001; 82550; 83605; 83735; 84100; 84145; 84443; 84484; 85025; 87040; 87077; 87086; 87186; 93005; 93010; 96361; 96365; 96372; 96375; 96376; G0378; J0696; J1650; J3475; J3490; J7042; S0028

== ENCOUNTER 2023-05-21 16:35 | Inpatient (IN) | payer MEDICARE, OTHER ==
[2023-05-21 17:00] LABS: Bacteria/HPF None Seen HPF (None Seen); Bilirubin Negative (Negative); Blood, Urine Negative (Negative); CAUTI Indications for Culture Dysuria,urgency,freq; Clarity Clear (Clear); Glucose, Urine (Dipstick) Normal (Negative); Ketone, Urine Negative (Negative); Leukocyte Negative Leu/uL (Negative); Nitrite Negative (Negative); Protein, Urine (Dipstick) Negative (Neg-Trace); RBC/HPF 0-3 HPF (0-3); Squamous Epithelial 0-3 HPF (0-3); Urobilinogen Normal mg/dL (Less than 2); WBC/HPF 0-3 HPF (0-3)
[2023-05-21 17:07] LABS: Urine Culture Reflex No No
[2023-05-21 17:14] LABS: #Eosinphils 0.1 thou/uL (0.0-0.7); #Monocytes 0.3 thou/uL (0.11-0.59); #Neutrophils 2.8 thou/uL (1.40-6.50); %Basophils 0.7 % (0.0-1.0); %Eosinophils 1.3 % (0.0-10.0); %Lymphocytes 27.4 % (21.0-51.0); %Monocytes 7.5 % (0.0-10.0); %Neutrophils 62.7 % (42.0-75.0); Hematocrit 48.1 % (42.0-52.0); Hemoglobin 15.9 g/dL (14.0-18.0); Mean Corpuscular HGB CONC 33.1 g/dL (32.0-36.0); Mean Corpuscular Hemoglobin 33.1 pg (27.0-31.0); Mean Platelet Volume 9.8 fL (7.4-10.4); Platelet Count 204 10x3/uL (130-400); Red Blood Cell (RBC) Count 4.81 mill/uL (4.70-6.10); White Blood Cell (WBC) Count 4.5 10x3/uL (4.8-10.8)
[2023-05-21 17:44] LABS: ALT (SGPT) 7 U/L (8-55); AST (SGOT) 19 U/L (5-34); Albumin 4.2 g/dL (3.4-4.8); Alkaline Phosphatase 52 U/L (40-110); Anion Gap 12 mmol/L (10-20); BUN (Urea Nitrogen) 15 mg/dL (8.4-25.7); Bilirubin, Total 2.4 mg/dL (0.2-1.2); Calc. Creatinine Clearance 0 mL/min (70-130); Calcium 9.4 mg/dL (7.8-10.44); Carbon Dioxide 23 mmol/L (23-31); Chloride 106 mmol/L (98-107); Estimated GFR 71; Globulin 2.5 g/dL (2.4-3.5); Glucose 82 mg/dL (80-115); Lipase Less than 4 U/L (8-78); Potassium 4.4 mmol/L (3.5-5.1); Protein, Total 6.7 g/dL (5.8-8.1); Sodium 137 mmol/L (136-145)
[2023-05-21 17:46] LABS: Troponin I Less than 0.010 ng/mL (< 0.028)
[2023-05-21 21:34] LABS: Acetaminophen Less than 10 mcg/mL (10.0-30.0); Alcohol Less than 10.0 mg/dL (Less than 10); Salicylate Less than 8.0 mg/dL (15.0-30.0)
[2023-05-21 22:12] LABS: Amphetamine Not Detected (NotDetected); Barbiturates Screen Not Detected (NotDetected); Benzodiazepine Screen Not Detected (NotDetected); Cocaine Metabolite Screen Not Detected (NotDetected); Methadone Not Detected (NotDetected); Methamphetamine Not Detected (NotDetected); Opiate Screen Not Detected (NotDetected); Oxycodone Screen Not Detected (NotDetected); Phencyclidine (PCP) Not Detected (NotDetected); THC/Cannabinoid Screen Not Detected (NotDetected); Tricyclic Screen Not Detected (NotDetected)
[2023-05-21] MEDS ORDERED: Acetaminophen 650 MG Suppository PR PRN (22:19)
[2023-05-21] MEDS ORDERED: Ondansetron PF 4 MG/2 ML Vial IVP PRN (22:19)
[2023-05-21 23:04] VITALS: BMI 19.6
[2023-05-22 05:43] LABS: Anion Gap 14 mmol/L (10-20); BUN (Urea Nitrogen) 12 mg/dL (8.4-25.7); Calc. Creatinine Clearance 54 mL/min (70-130); Carbon Dioxide 20 mmol/L (23-31); Chloride 106 mmol/L (98-107); Estimated GFR 86; Glucose 74 mg/dL (80-115); Magnesium 1.8 mg/dL (1.6-2.6); Potassium 4.2 mmol/L (3.5-5.1); Sodium 136 mmol/L (136-145)
[2023-05-22] MEDS ORDERED: Dextrose 5 %-0.45 % NaCl 1,000 ML IV SCH (05:45)
[2023-05-22 06:29] LABS: #Eosinphils 0.1 thou/uL (0.0-0.7); #Monocytes 0.5 thou/uL (0.11-0.59); #Neutrophils 2.8 thou/uL (1.40-6.50); %Basophils 0.8 % (0.0-1.0); %Eosinophils 2.7 % (0.0-10.0); %Lymphocytes 28.1 % (21.0-51.0); %Monocytes 9.7 % (0.0-10.0); %Neutrophils 58.5 % (42.0-75.0); Hematocrit 46.2 % (42.0-52.0); Hemoglobin 15.1 g/dL (14.0-18.0); Mean Corpuscular HGB CONC 32.7 g/dL (32.0-36.0); Mean Corpuscular Hemoglobin 32.3 pg (27.0-31.0); Mean Corpuscular Volume 98.7 fl (78.0-98.0); Mean Platelet Volume 10.2 fL (7.4-10.4); Platelet Count 186 10x3/uL (130-400); Red Blood Cell (RBC) Count 4.68 mill/uL (4.70-6.10); White Blood Cell (WBC) Count 4.7 10x3/uL (4.8-10.8)
[2023-05-22] MEDS ORDERED: Ondansetron ODT 4 MG TAB PO PRN (14:57)
[2023-05-22] MEDS ORDERED: Carbidopa/Levodopa 25-100 mg Tablet PO SCH ×2 (15:00)
[2023-05-22] MEDS ORDERED: Aspirin 81 mg Enteric Coated Tablet PO SCH (15:30)
[2023-05-22] MEDS: Carbidopa/Levodopa 25-100 mg Tablet PO SCH ×2 (18:05→20:01)
[2023-05-22] MEDS: Atorvastatin Calcium 40 MG TAB PO SCH (20:00)
[2023-05-23 04:59] LABS: #Eosinphils 0.1 thou/uL (0.0-0.7); #Monocytes 0.6 thou/uL (0.11-0.59); #Neutrophils 3.2 thou/uL (1.40-6.50); %Basophils 0.5 % (0.0-1.0); %Eosinophils 2.2 % (0.0-10.0); %Lymphocytes 32.9 % (21.0-51.0); %Monocytes 9.6 % (0.0-10.0); %Neutrophils 54.6 % (42.0-75.0); Hematocrit 47.7 % (42.0-52.0); Mean Corpuscular HGB CONC 33.5 g/dL (32.0-36.0); Mean Corpuscular Hemoglobin 32.9 pg (27.0-31.0); Mean Corpuscular Volume 97.9 fl (78.0-98.0); Mean Platelet Volume 10.3 fL (7.4-10.4); Platelet Count 194 10x3/uL (130-400); RBC Distribution Width 11.7 % (11.5-14.5); Red Blood Cell (RBC) Count 4.87 mill/uL (4.70-6.10); White Blood Cell (WBC) Count 5.8 10x3/uL (4.8-10.8)
[2023-05-23 05:26] LABS: Anion Gap 13 mmol/L (10-20); BUN (Urea Nitrogen) 14 mg/dL (8.4-25.7); Calc. Creatinine Clearance 52 mL/min (70-130); Calcium 9.4 mg/dL (7.8-10.44); Carbon Dioxide 23 mmol/L (23-31); Chloride 106 mmol/L (98-107); Estimated GFR 83; Glucose 88 mg/dL (80-115); Potassium 4.3 mmol/L (3.5-5.1); Sodium 138 mmol/L (136-145)
[2023-05-23] MEDS: Aspirin 81 mg Enteric Coated Tablet PO SCH (10:45)
[2023-05-23] MEDS: Clopidogrel Bisulfate 75 MG TAB PO SCH (10:45)
[2023-05-23] MEDS: Carbidopa/Levodopa 25-100 mg Tablet PO SCH ×2 (10:45→13:44)
[2023-05-23] MEDS: Carbidopa/Levodopa 25-250 mg Tablet PO SCH ×2 (17:18→20:14)
[2023-05-23] MEDS: Atorvastatin Calcium 40 MG TAB PO SCH (20:14)
[2023-05-23] MEDS ORDERED: Lorazepam 2 MG/ML VIAL SLOW IVP PRN (22:12)
[2023-05-24] MEDS ORDERED: FLU VACC QS2023(65UP)/MF59C/PF 60 MCG/0.5 ML SYRINGE IM ONE (09:00)
[2023-05-24] MEDS: Carbidopa/Levodopa 25-250 mg Tablet PO SCH ×4 (11:13→21:06)
[2023-05-24] MEDS: Aspirin 81 mg Enteric Coated Tablet PO SCH (11:13)
[2023-05-24] MEDS: Clopidogrel Bisulfate 75 MG TAB PO SCH (11:13)
[2023-05-24] MEDS: Atorvastatin Calcium 40 MG TAB PO SCH (21:06)
[2023-05-24] MEDS: QUEtiapine 25 MG TAB PO SCH (21:06)
[2023-05-25] MEDS: Carbidopa/Levodopa 25-250 mg Tablet PO SCH ×4 (09:48→21:09)
[2023-05-25] MEDS: Clopidogrel Bisulfate 75 MG TAB PO SCH (09:48)
[2023-05-25] MEDS: Aspirin 81 mg Enteric Coated Tablet PO SCH (09:48)
[2023-05-25] MEDS: Atorvastatin Calcium 40 MG TAB PO SCH (21:09)
[2023-05-25] MEDS: QUEtiapine 25 MG TAB PO SCH (21:09)
[2023-05-26] MEDS: Carbidopa/Levodopa 25-250 mg Tablet PO SCH ×4 (08:47→21:28)
[2023-05-26] MEDS: Aspirin 81 mg Enteric Coated Tablet PO SCH (08:47)
[2023-05-26] MEDS: Clopidogrel Bisulfate 75 MG TAB PO SCH (08:47)
[2023-05-26] MEDS: Atorvastatin Calcium 40 MG TAB PO SCH (21:28)
[2023-05-26] MEDS: QUEtiapine 25 MG TAB PO SCH (21:28)
[2023-05-27] MEDS: Clopidogrel Bisulfate 75 MG TAB PO SCH (08:22)
[2023-05-27] MEDS: Carbidopa/Levodopa 25-250 mg Tablet PO SCH ×4 (08:22→20:08)
[2023-05-27] MEDS: Aspirin 81 mg Enteric Coated Tablet PO SCH (08:22)
[2023-05-27] MEDS: QUEtiapine 25 MG TAB PO SCH (20:09)
[2023-05-27] MEDS: Atorvastatin Calcium 40 MG TAB PO SCH (20:09)
[2023-05-28] MEDS: Carbidopa/Levodopa 25-250 mg Tablet PO SCH ×4 (08:13→20:21)
[2023-05-28] MEDS: Clopidogrel Bisulfate 75 MG TAB PO SCH (08:13)
[2023-05-28] MEDS: Aspirin 81 mg Enteric Coated Tablet PO SCH (08:13)
[2023-05-28] MEDS: QUEtiapine 25 MG TAB PO SCH (20:21)
[2023-05-28] MEDS: Atorvastatin Calcium 40 MG TAB PO SCH (20:21)
[2023-05-29 05:17] LABS: Hematocrit 48.9 % (42.0-52.0); Hemoglobin 16.3 g/dL (14.0-18.0); Mean Corpuscular HGB CONC 33.3 g/dL (32.0-36.0); Mean Corpuscular Hemoglobin 32.1 pg (27.0-31.0); Mean Corpuscular Volume 96.3 fl (78.0-98.0); Mean Platelet Volume 10.4 fL (7.4-10.4); Platelet Count 232 10x3/uL (130-400); RBC Distribution Width 11.7 % (11.5-14.5); Red Blood Cell (RBC) Count 5.08 mill/uL (4.70-6.10); White Blood Cell (WBC) Count 4.6 10x3/uL (4.8-10.8)
[2023-05-29 05:52] LABS: Anion Gap 14 mmol/L (10-20); BUN (Urea Nitrogen) 18 mg/dL (8.4-25.7); Calc. Creatinine Clearance 56 mL/min (70-130); Calcium 9.5 mg/dL (7.8-10.44); Carbon Dioxide 22 mmol/L (23-31); Chloride 106 mmol/L (98-107); Estimated GFR 85; Glucose 86 mg/dL (80-115); Magnesium 1.8 mg/dL (1.6-2.6); Phosphorus 2.9 mg/dL (2.3-4.7); Potassium 3.8 mmol/L (3.5-5.1); Sodium 138 mmol/L (136-145)
[2023-05-29] MEDS: Naproxen 500 MG TAB PO PRN (09:09)
[2023-05-29] MEDS: Aspirin 81 mg Enteric Coated Tablet PO SCH (09:11)
[2023-05-29] MEDS: Carbidopa/Levodopa 25-250 mg Tablet PO SCH ×4 (09:11→21:04)
[2023-05-29] MEDS: Clopidogrel Bisulfate 75 MG TAB PO SCH (09:12)
[2023-05-29] MEDS: QUEtiapine 25 MG TAB PO SCH (21:04)
[2023-05-29] MEDS: levETIRAcetam 500 MG/5 ML VIAL SLOW IVP SCH (21:04)
[2023-05-29] MEDS: Atorvastatin Calcium 40 MG TAB PO SCH (21:05)
[2023-05-30 05:05] LABS: #Eosinphils 0.1 thou/uL (0.0-0.7); #Monocytes 0.4 thou/uL (0.11-0.59); #Neutrophils 2.2 thou/uL (1.40-6.50); %Basophils 0.8 % (0.0-1.0); %Eosinophils 2.9 % (0.0-10.0); %Lymphocytes 43.4 % (21.0-51.0); %Monocytes 8.8 % (0.0-10.0); %Neutrophils 43.9 % (42.0-75.0); Hematocrit 47.2 % (42.0-52.0); Hemoglobin 15.7 g/dL (14.0-18.0); Mean Corpuscular HGB CONC 33.3 g/dL (32.0-36.0); Mean Corpuscular Hemoglobin 32.7 pg (27.0-31.0); Mean Corpuscular Volume 98.3 fl (78.0-98.0); Mean Platelet Volume 10.3 fL (7.4-10.4); Platelet Count 242 10x3/uL (130-400); RBC Distribution Width 11.9 % (11.5-14.5); White Blood Cell (WBC) Count 4.9 10x3/uL (4.8-10.8)
[2023-05-30 05:27] LABS: Anion Gap 12 mmol/L (10-20); BUN (Urea Nitrogen) 18 mg/dL (8.4-25.7); Calc. Creatinine Clearance 59 mL/min (70-130); Calcium 9.2 mg/dL (7.8-10.44); Carbon Dioxide 25 mmol/L (23-31); Chloride 106 mmol/L (98-107); Estimated GFR 91; Glucose 83 mg/dL (80-115); Magnesium 1.9 mg/dL (1.6-2.6); Potassium 4.2 mmol/L (3.5-5.1); Sodium 139 mmol/L (136-145)
[2023-05-30] MEDS: levETIRAcetam 500 MG/5 ML VIAL SLOW IVP SCH ×2 (09:03→21:35)
[2023-05-30] MEDS: Clopidogrel Bisulfate 75 MG TAB PO SCH (09:04)
[2023-05-30] MEDS: Aspirin Chewable 81 MG TAB PO SCH (09:04)
[2023-05-30] MEDS: Carbidopa/Levodopa 25-250 mg Tablet PO SCH ×4 (09:04→21:36)
[2023-05-30] MEDS: Naproxen 500 MG TAB PO PRN (21:35)
[2023-05-30] MEDS: Atorvastatin Calcium 40 MG TAB PO SCH (21:36)
[2023-05-30] MEDS: QUEtiapine 25 MG TAB PO SCH (21:36)
[2023-05-31] MEDS ORDERED: Bisacodyl 10 MG SUPP PR PRN (01:16)
[2023-05-31] MEDS: Polyethylene Glycol 3350 17 GM Packet PO PRN (03:42)
[2023-05-31] MEDS: Carbidopa/Levodopa 25-250 mg Tablet PO SCH ×4 (08:10→21:27)
[2023-05-31] MEDS: Aspirin Chewable 81 MG TAB PO SCH (08:10)
[2023-05-31] MEDS: Clopidogrel Bisulfate 75 MG TAB PO SCH (08:10)
[2023-05-31] MEDS: levETIRAcetam 500 MG/5 ML VIAL SLOW IVP SCH ×2 (08:10→21:28)
[2023-05-31] MEDS: Atorvastatin Calcium 40 MG TAB PO SCH (21:26)
[2023-05-31] MEDS: QUEtiapine 25 MG TAB PO SCH (21:27)
[2023-05-31] MEDS: Naproxen 500 MG TAB PO PRN (21:27)
[2023-06-01] MEDS: Polyethylene Glycol 3350 17 GM Packet PO PRN (08:57)
[2023-06-01] MEDS: Carbidopa/Levodopa 25-250 mg Tablet PO SCH ×4 (08:57→20:22)
[2023-06-01] MEDS: Aspirin Chewable 81 MG TAB PO SCH (08:57)
[2023-06-01] MEDS: levETIRAcetam 500 MG/5 ML VIAL SLOW IVP SCH ×2 (08:57→20:22)
[2023-06-01] MEDS: Clopidogrel Bisulfate 75 MG TAB PO SCH (08:57)
[2023-06-01] MEDS ORDERED: Docusate 100 MG CAP PO PRN (12:02)
[2023-06-01] MEDS ORDERED: Polyethylene Glycol 3350 17 GM Packet PO PRN (12:02)
[2023-06-01] MEDS: QUEtiapine 25 MG TAB PO SCH (20:22)
[2023-06-01] MEDS: Atorvastatin Calcium 40 MG TAB PO SCH (20:22)
[2023-06-02 08:06] VITALS: TEMP 97.9
[2023-06-02] MEDS: levETIRAcetam 500 MG/5 ML VIAL SLOW IVP SCH (09:14)
[2023-06-02] MEDS: Clopidogrel Bisulfate 75 MG TAB PO SCH (09:14)
[2023-06-02] MEDS: Carbidopa/Levodopa 25-250 mg Tablet PO SCH ×2 (09:14→13:17)
[2023-06-02] MEDS: Aspirin Chewable 81 MG TAB PO SCH (09:14)
[2023-06-02 11:26] VITALS: BP 105/73
[2023-06-02] MEDS ORDERED: levETIRAcetam 500 MG TAB PO SCH (21:00)
== END 2023-06-02 14:25 | DRG 57 ==
LOC: ERS 16:35 → 2SE 22:00 → INTOOBSV 22:00 → OBSVTOIN 05-23 15:56
PROVIDERS: ADMIT Internal Medicine; ATTEND Internal Medicine
PROC: 4A00X4Z Measurement of Central Nervous Electrical Activity, External Approach (ICD-10-PCS; principal; 2023-05-23)
DX: G20.A2 Parkinson's disease without dyskinesia, with fluctuations (principal); G45.9 Transient cerebral ischemic attack, unspecified; N18.2 Chronic kidney disease, stage 2 (mild); Z66 Do not resuscitate; F02.80 Dementia in other diseases classified elsewhere, unspecified severity, without behavioral disturbance, psychotic disturbance, mood disturbance, and anxiety; T79.6XXA Traumatic ischemia of muscle, initial encounter; R32 Unspecified urinary incontinence; R41.82 Altered mental status, unspecified; R47.1 Dysarthria and anarthria; R13.12 Dysphagia, oropharyngeal phase; Z88.0 Allergy status to penicillin; Z79.82 Long term (current) use of aspirin; Z79.899 Other long term (current) drug therapy; Z98.890 Other specified postprocedural states; Z86.73 Personal history of transient ischemic attack (TIA), and cerebral infarction without residual deficits; Z80.9 Family history of malignant neoplasm, unspecified
CPT/HCPCS: 36415; 36416; 70450; 71045; 74230; 80048; 80053; 80306; 80307; 81001; 82140; 83605; 83690; 83735; 84100; 84484; 85025; 85027; 87040; 93005; 95711; 95816; 95819; G0378; J1953; J2060; J7042

== ENCOUNTER 2023-12-04 13:43 | Emergency (ER) | payer MEDICARE, OTHER ==
[2023-12-04 14:14] LABS: Bilirubin Negative (Negative); Blood, Urine Negative (Negative); Glucose, Urine (Dipstick) Negative (Negative); Ketone, Urine Negative (Negative); Leukocyte Negative (Negative); Nitrite Negative (Negative); Protein, Urine (Dipstick) Negative (Neg-Trace); Specific Gravity, Urine 1.015 (1.005-1.030); Urobilinogen 0.2 mg/dL (Less than 2)
[2023-12-04 14:17] LABS: Clarity Clear (Clear)
[2023-12-04 14:18] LABS: Bacteria/HPF None Seen HPF (None Seen); CAUTI Indications for Culture Immunosuppressed; RBC/HPF 0-3 HPF (0-3); Squamous Epithelial None Seen HPF (0-3); WBC/HPF 0-3 HPF (0-3)
[2023-12-04 14:21] LABS: Urine Culture Reflex Yes Yes
[2023-12-04 15:18] LABS: ALT (SGPT) 15 U/L (8-55); AST (SGOT) 56 U/L (5-34); Albumin 3.5 g/dL (3.4-4.8); Alkaline Phosphatase 59 U/L (40-110); Anion Gap 13 mmol/L (10-20); BUN (Urea Nitrogen) 16 mg/dL (8.4-25.7); Calc. Creatinine Clearance 0 mL/min (70-130); Calcium 9.2 mg/dL (7.8-10.44); Carbon Dioxide 24 mmol/L (23-31); Chloride 110 mmol/L (98-107); Estimated GFR 74; Globulin 3.5 g/dL (2.4-3.5); Glucose 88 mg/dL (80-115); Potassium 4.5 mmol/L (3.5-5.1); Sodium 142 mmol/L (136-145)
[2023-12-04 15:20] LABS: Troponin I Less than 0.010 ng/mL (< 0.028)
[2023-12-04 15:32] LABS: #Basophils 0.03 10x3/uL (0.0-0.2); %Basophils 0.6 % (0.0-1.0); %Eosinophils 1.3 % (0.0-10.0); %Monocytes 8.9 % (0.0-10.0); Hematocrit 46.2 % (42.0-52.0); Hemoglobin 15.6 g/dL (14.0-18.0); Mean Corpuscular HGB CONC 33.8 g/dL (32.0-36.0); Mean Corpuscular Hemoglobin 33.5 pg (27.0-31.0); Mean Corpuscular Volume 99.1 fL (78.0-98.0); Mean Platelet Volume 10.6 fL (7.4-10.4); Platelet Count 177 10x3/uL (130-400); RBC Distribution Width 12.3 % (11.5-14.5); Red Blood Cell (RBC) Count 4.66 mill/uL (4.70-6.10)
== END 2023-12-04 17:43 ==
LOC: ERS 13:43
DX: G20.A1 Parkinson's disease without dyskinesia, without mention of fluctuations (principal); F02.80 Dementia in other diseases classified elsewhere, unspecified severity, without behavioral disturbance, psychotic disturbance, mood disturbance, and anxiety; N18.9 Chronic kidney disease, unspecified; Z86.73 Personal history of transient ischemic attack (TIA), and cerebral infarction without residual deficits; Z79.899 Other long term (current) drug therapy
CPT/HCPCS: 36416; 70450; 71045; 80053; 81001; 84484; 85025; 87086; 93005

== ENCOUNTER 2024-01-11 08:57 | Inpatient (IN) | payer OTHER ==
[2024-01-11 09:49] LABS: #Basophils 0.03 10x3/uL (0.0-0.2); #Eosinphils Less than 0.03 10x3/uL (0.0-0.7); %Eosinophils 0.3 % (0.0-10.0); %Lymphocytes 34.6 % (21.0-51.0); %Monocytes 9.5 % (0.0-10.0); %Neutrophils 54.6 % (42.0-75.0); Hematocrit 45.4 % (42.0-52.0); Hemoglobin 15.7 g/dL (14.0-18.0); Mean Corpuscular HGB CONC 34.6 g/dL (32.0-36.0); Mean Corpuscular Hemoglobin 33.4 pg (27.0-31.0); Mean Corpuscular Volume 96.6 fL (78.0-98.0); Mean Platelet Volume 11.7 fL (7.4-10.4); Platelet Count 159 10x3/uL (130-400); RBC Distribution Width 11.8 % (11.5-14.5)
[2024-01-11] MEDS ORDERED: Iopamidol-370 76% 500 ML MDV (1 ML CHARGE) ONE (10:12)
[2024-01-11] MEDS ORDERED: Iopamidol 370 76% 100 ML VIAL ONE (10:12)
[2024-01-11 10:46] LABS: Bacteria/HPF None Seen HPF (None Seen); Bilirubin Negative (Negative); Blood, Urine Trace (Negative); CAUTI Indications for Culture Dysuria,urgency,freq; Clarity Clear (Clear); Glucose, Urine (Dipstick) Normal (Negative); Ketone, Urine Negative (Negative); Leukocyte Negative Leu/uL (Negative); Nitrite Negative (Negative); Protein, Urine (Dipstick) 10 mg/dL (Neg-Trace); Squamous Epithelial None Seen HPF (0-3); Urobilinogen Normal mg/dL (Less than 2); pH, Urine 5.5 (5.0-9.0)
[2024-01-11 10:48] LABS: Amphetamine Not Detected (NotDetected); Barbiturates Screen Not Detected (NotDetected); Benzodiazepine Screen Not Detected (NotDetected); Cocaine Metabolite Screen Not Detected (NotDetected); Methadone Not Detected (NotDetected); Methamphetamine Not Detected (NotDetected); Opiate Screen Not Detected (NotDetected); Oxycodone Screen Not Detected (NotDetected); Phencyclidine (PCP) Not Detected (NotDetected); Specific Gravity, Urine 1.054 (1.002-1.036); THC/Cannabinoid Screen Not Detected (NotDetected); Tricyclic Screen Detected (NotDetected)
[2024-01-11 10:49] LABS: Urine Culture Reflex No No
[2024-01-11 11:02] LABS: Alcohol Less than 10.0 mg/dL (Less than 10); Salicylate Less than 8.0 mg/dL (15.0-30.0)
[2024-01-11 11:18] LABS: ALT (SGPT) 32 U/L (8-55); AST (SGOT) 20 U/L (5-34); Albumin 3.7 g/dL (3.4-4.8); Alkaline Phosphatase 55 U/L (40-110); Anion Gap 15 mmol/L (10-20); BUN (Urea Nitrogen) 28 mg/dL (8.4-25.7); Bilirubin, Total 0.9 mg/dL (0.2-1.2); CK (CPK) 95 U/L (30-200); Calc. Creatinine Clearance 0 mL/min (70-130); Calcium 9.6 mg/dL (7.8-10.44); Carbon Dioxide 20 mmol/L (23-31); Chloride 107 mmol/L (98-107); Estimated GFR 59; Glucose 92 mg/dL (80-115); Protein, Total 6.7 g/dL (5.8-8.1); Sodium 138 mmol/L (136-145)
[2024-01-11 11:22] LABS: Lipase 11 U/L (8-78)
[2024-01-11 11:25] LABS: Acetaminophen Less than 10 mcg/mL (10.0-30.0)
[2024-01-11 11:37] LABS: Troponin I 0.014 ng/mL (< 0.028)
[2024-01-11] MEDS ORDERED: Aspirin 300 MG Suppository ONE (14:13)
[2024-01-11] MEDS ORDERED: Bisacodyl 10 MG SUPP PR PRN (15:51)
[2024-01-11] MEDS ORDERED: Ondansetron PF 4 MG/2 ML Vial IVP PRN (15:51)
[2024-01-11 17:26] VITALS: BMI 28.0
[2024-01-11] MEDS: Famotidine/PF 20 mg/2ml Vial SLOW IVP SCH (21:41)
[2024-01-11] MEDS: Ziprasidone 20 MG VIAL IM SCH (23:51)
[2024-01-12] MEDS: Sterile Water 10 ML ONE (00:01)
[2024-01-12 04:46] LABS: #Basophils 0.03 10x3/uL (0.0-0.2); %Basophils 0.5 % (0.0-1.0); %Eosinophils 0.8 % (0.0-10.0); %Lymphocytes 41.6 % (21.0-51.0); %Monocytes 9.8 % (0.0-10.0); %Neutrophils 47.3 % (42.0-75.0); Hematocrit 45.5 % (42.0-52.0); Hemoglobin 15.3 g/dL (14.0-18.0); Mean Corpuscular HGB CONC 33.6 g/dL (32.0-36.0); Mean Corpuscular Hemoglobin 32.8 pg (27.0-31.0); Mean Corpuscular Volume 97.6 fL (78.0-98.0); Mean Platelet Volume 11.2 fL (7.4-10.4); Platelet Count 171 10x3/uL (130-400); RBC Distribution Width 11.9 % (11.5-14.5); Red Blood Cell (RBC) Count 4.66 mill/uL (4.70-6.10)
[2024-01-12 05:31] LABS: ALT (SGPT) 27 U/L (8-55); AST (SGOT) 18 U/L (5-34); Albumin 3.5 g/dL (3.4-4.8); Alkaline Phosphatase 49 U/L (40-110); Anion Gap 13 mmol/L (10-20); BUN (Urea Nitrogen) 18 mg/dL (8.4-25.7); Bilirubin, Total 1.2 mg/dL (0.2-1.2); Calc. Creatinine Clearance 63 mL/min (70-130); Calcium 9.4 mg/dL (7.8-10.44); Carbon Dioxide 21 mmol/L (23-31); Chloride 111 mmol/L (98-107); Estimated GFR 66; Globulin 3.2 g/dL (2.4-3.5); Glucose 95 mg/dL (80-115); Potassium 3.6 mmol/L (3.5-5.1); Protein, Total 6.7 g/dL (5.8-8.1); Sodium 141 mmol/L (136-145)
[2024-01-12] MEDS: Enoxaparin 40 MG (0.4 mL) SYRINGE SC SCH (08:56)
[2024-01-13] MEDS: Sterile Water 10 ML ONE (04:30)
[2024-01-13] MEDS: Ziprasidone 20 MG VIAL IM SCH (04:55)
[2024-01-13] MEDS: Sterile Water 10 ML VIAL FS PRN (04:55)
[2024-01-13] MEDS: Aspirin 81 mg Enteric Coated Tablet PO SCH (09:36)
[2024-01-13] MEDS: Carbidopa/Levodopa 25-250 mg Tablet PO SCH (09:36)
[2024-01-13] MEDS: levETIRAcetam 500 MG TAB PO SCH (09:36)
[2024-01-13] MEDS: Pantoprazole DR 40 MG TAB PO SCH (09:36)
[2024-01-13] MEDS: Clopidogrel Bisulfate 75 MG TAB PO SCH (09:36)
[2024-01-13] MEDS ORDERED: QUEtiapine 25 MG TAB PO SCH (21:00)
[2024-01-13] MEDS: Atorvastatin Calcium 40 MG TAB PO SCH (21:04)
[2024-01-13] MEDS: QUEtiapine 25 MG TAB PO SCH (21:04)
[2024-01-15 12:48] VITALS: BP 79/73; TEMP 97.7
== END 2024-01-15 17:21 | disposition home or self-care (01) | DRG 71 ==
LOC: ERS 08:57 → ERHOLD 14:54 → 2NO 18:27 → OBSVTOIN 01-13 14:41 → T4-B 01-13 15:57
PROVIDERS: ADMIT Family Medicine; ATTEND Internal Medicine
PROC: 4A00X4Z Measurement of Central Nervous Electrical Activity, External Approach (ICD-10-PCS; principal; 2024-01-12)
DX: G93.41 Metabolic encephalopathy (principal); E44.0 Moderate protein-calorie malnutrition; G40.909 Epilepsy, unspecified, not intractable, without status epilepticus; N18.2 Chronic kidney disease, stage 2 (mild); Z66 Do not resuscitate; G20.A1 Parkinson's disease without dyskinesia, without mention of fluctuations; G93.89 Other specified disorders of brain; R29.6 Repeated falls; G20.A2 Parkinson's disease without dyskinesia, with fluctuations; Z68.27 Body mass index [BMI] 27.0-27.9, adult; Z91.148 Patient's other noncompliance with medication regimen for other reason
CPT/HCPCS: 0042T; 36415; 36416; 70450; 70496; 70498; 71045; 72125; 74176; 80053; 80306; 80307; 81001; 82140; 82550; 83605; 83690; 84443; 84484; 85025; 87040; 93005; 95700; 95711; 95819; J1650; J3486; Q9967; S0028

== ENCOUNTER 2024-04-21 09:14 | Emergency (ER) | payer OTHER ==
[2024-04-21] MEDS ORDERED: Morphine 4 MG/ML VIAL ONE (10:00)
[2024-04-21] MEDS ORDERED: Ondansetron PF 4 MG/2 ML Vial ONE (10:00)
== END 2024-04-21 12:27 | disposition home or self-care (01) ==
LOC: ERS 09:14
DX: G20.A1 Parkinson's disease without dyskinesia, without mention of fluctuations (principal); I12.9 Hypertensive chronic kidney disease with stage 1 through stage 4 chronic kidney disease, or unspecified chronic kidney disease; N18.9 Chronic kidney disease, unspecified; W18.2XXA Fall in (into) shower or empty bathtub, initial encounter; Z86.73 Personal history of transient ischemic attack (TIA), and cerebral infarction without residual deficits
CPT/HCPCS: 70450; 71260; 74177; J2272; J2405; 96374; 96375